=== PATIENT | female | born 1950 | race Asian ===

== ENCOUNTER 2023-09-17 00:40 | Emergency (ER) | payer MEDICARE, OTHER ==
[~2023-09-17] VITALS: Ht 149.9 cm; Wt 51.8 kg
[2023-09-17 00:47] VITALS: TEMP 98.2
[2023-09-17 01:17] LABS: BASOPHILS % (AUTO) 0.4 % (0.0-2.0); EOSINOPHILS % (AUTO) 0.7 % (1.0-6.0); HEMATOCRIT 34.5 % (36-46); HEMOGLOBIN 11.2 g/dL (12.0-16.0); LYMPHOCYTES # (AUTO) 5.2 K/uL (1.0-4.8); LYMPHOCYTES % (AUTO) 30.2 % (22.0-44.0); MEAN CORPUSCULAR HGB CONC 32.3 G/dL (31.0-37.0); MEAN CORPUSCULAR VOLUME 84 fL (80-100); MONOCYTES # (AUTO) 1.5 K/uL (0.1-1.0); MONOCYTES % (AUTO) 8.9 % (2.0-9.0); NEUTROPHILS # (AUTO) 10.4 K/uL (1.8-7.7); NEUTROPHILS % (AUTO) 59.8 % (40.0-70.0); PLATELET COUNT (AUTO) 277 K/uL (150-450); RED BLOOD CELL COUNT(AUTO) 4.13 MIL/uL (4.00-5.20); RED CELL DISTRIBUTION WIDTH 14.3 % (11.5-14.5); WHITE BLOOD COUNT (AUTO) 17.3 K/uL (4.5-11.0)
[2023-09-17 01:26] LABS: CALCIUM, TOTAL 9.5 mg/dL (8.8-10.5); CREATININE 0.97 mg/dL (0.60-1.30); POTASSIUM 3.7 mmol/L (3.5-5.1)
[2023-09-17 01:33] LABS: TROPONIN I-HIGH SENSITIVITY 7 ng/L (<51)
[2023-09-17 01:50] LABS: ALBUMIN 3.5 g/dL (3.4-5.0); BILIRUBIN,TOTAL 0.3 mg/dL (0.1-1.0); TOTAL PROTEIN, SERUM 8.6 g/dL (6.4-8.2)
[2023-09-17 02:04] LABS: MAGNESIUM 2.2 mg/dL (1.80-2.40)
[2023-09-17] MEDS ORDERED: AZIT-167 PO (02:36)
[2023-09-17] MEDS ORDERED: CEPH-558 PO (02:36)
[2023-09-17 03:06] LABS: COVID AG,FIA SOURCE NASAL SWAB
[2023-09-17] MEDS: CefTRIAXone 1 GM/DEXTROSE 50 ML IV ONE (03:08)
[2023-09-17] MEDS: SODIUM CHLORIDE 0.9% 1,000 ML IV ONE (03:08)
[2023-09-17 03:13] LABS: APPEARANCE,URINE CLEAR (CLEAR); BILIRUBIN,URINE NEGATIVE (NEGATIVE); COLOR,URINE COLORLESS (YELLOW); GLUCOSE, URINE (UA) NEGATIVE (NEGATIVE); KETONES,URINE NEGATIVE (NEGATIVE); LEUKOCYTE ESTERASE ,URINE TRACE (NEGATIVE); NITRATE,URINE NEGATIVE (NEGATIVE); OCCULT BLOOD,URINE SMALL (NEGATIVE); PH,URINE 5.5 (5.0-8.0); PROTEIN,URINE NEGATIVE (NEGATIVE); SPECIFIC GRAVITIY, URINE 1.003 (1.003-1.030); UROBILINOGEN,URINE <=1.0 mg/dL (<=1.0)
[2023-09-17 03:16] LABS: SARS-COV2 (COVID) ANTIGEN,FIA Negative (Negative)
[2023-09-17 03:17] LABS: RBC,URINE 0-2 /HPF (0-2)
[2023-09-17 03:18] LABS: BACTERIA,URINE None Seen /HPF (None Seen); SQUAMOUS EPITHELIAL CELL,UR Few /LPF (None Seen); WBC,URINE 0-2 /HPF (0-5)
[2023-09-17 03:22] LABS: LACTIC ACID 1.6 mmol/L (0.4-2.0)
[2023-09-17 04:03] VITALS: BP 146/66; PULSE 100; RESP 18
[2023-09-17] MEDS: AZITHROMYCIN 500 MG/NS 250 ML IV ONE (04:16)
== END 2023-09-17 05:29 | disposition home or self-care (01) ==
LOC: EMS 00:41
DX: J18.9 Pneumonia, unspecified organism (principal); E78.00 Pure hypercholesterolemia, unspecified; I10 Essential (primary) hypertension; Z90.49 Acquired absence of other specified parts of digestive tract; Z20.822 Contact with and (suspected) exposure to COVID-19
CPT/HCPCS: 99285; 96365; 71045; 96367; 87426; 80053; 81001; 82550; 83605; 83735; 83880; 84484; 85025; 87040; 36415; 93005; J0456; J0696; J7030